=== PATIENT | female | born 1955 | race Caucasian/White ===

== ENCOUNTER 2019-07-10 07:53 | Day surgery (SDC) | payer OTHER ==
[~2019-07-10] VITALS: Ht 167.6 cm; Wt 115.0 kg
[~2019-07-10 07:53] MED LIST: ALBU90OI6 INH; ALPR.5 PO; AMLO5; ATOR10 PO; Aspirin EC81 MG; BUPR150T2; DULO60 PO; ESCI10; GABA400 PO; GAVILAX17 GM PO; GLIP10ER PO; HYDCHL12.5 PO; HYDR1TAB94 PO; INSULANPEN; LOSA50 PO; MELA3 PO; METF500 PO; METO25ER PO; OLME20 PO; OXYC10ER PO; PROM25 PO; Zantac150 MG PO; [UNRECOGNIZED DRUG - OTHER]
--- NOTE | 2019-07-10 09:05 | NUR ---
Pt received from Nena NAVARRO, [facility], Pt sitting upright in recliner in good spirits. Pt states she is pre- cath and post sob pt has not used her inhaler today. Lungs clear with diminsished posterior sounds. Instructed pt to use her inhaler. Right radial site wnl. Iv in right arm patent iv infusing at 100/hr NS. Call light given, spouse at bedside. Pt drinking hot coffee. Pt other then tightness in chest denies pain pt described the above prior to cath procedure.
--- NOTE | 2019-07-10 12:30 | NUR ---
DISCHARGE PT REMAINED A&OX3 AND DENIED ANY PAIN DURING RECOVERY. IV DC'D WITH CANULA IN TACT. TR BAND REMOVED-CLOTH DOT AND WHITE BOARD IN PLACE-CDI NO HEMATOMA NOTED. DISCHARGE PAPERWORK GONE OVER WITH PT AND SPOUSE. PT AND SPOUSE VERBALLY STATED THE UNDERSTANDING OF THE DISCHARGE EDUCATION AND DENIED ANY QUESTIONS AT THIS TIME. THIS NURSE HELP PT DRESS. PT WHEELED OUT BY ERIKA Bauer
== END 2019-07-10 12:30 | disposition home or self-care (01) ==
LOC: MHTC 07:53
DX: R07.9 Chest pain, unspecified (principal); R06.00 Dyspnea, unspecified; I12.9 Hypertensive chronic kidney disease with stage 1 through stage 4 chronic kidney disease, or unspecified chronic kidney disease; E11.22 Type 2 diabetes mellitus with diabetic chronic kidney disease; N18.9 Chronic kidney disease, unspecified; E78.5 Hyperlipidemia, unspecified; J44.9 Chronic obstructive pulmonary disease, unspecified; G43.909 Migraine, unspecified, not intractable, without status migrainosus; K21.9 Gastro-esophageal reflux disease without esophagitis; F41.9 Anxiety disorder, unspecified; F32.9 Major depressive disorder, single episode, unspecified; G47.33 Obstructive sleep apnea (adult) (pediatric); E66.9 Obesity, unspecified; Z88.0 Allergy status to penicillin; Z88.6 Allergy status to analgesic agent; Z91.040 Latex allergy status; Z79.899 Other long term (current) drug therapy; Z79.82 Long term (current) use of aspirin; Z79.4 Long term (current) use of insulin; Z79.51 Long term (current) use of inhaled steroids; Z68.41 Body mass index [BMI] 40.0-44.9, adult
CPT/HCPCS: 93454; 99152; C1769; C1894; J1644; J2250; J3010; J7030; Q9967

== ENCOUNTER → 2019-07-16 | Outpatient (CLI) | payer OTHER ==
[2019-07-20 12:07] LABS: M-SPIKE, % Not Observed % (Not Observed); PROTEIN,TOTAL,URINE 5.2 mg/dL (Not Estab.)
== END | disposition home or self-care (01) ==
LOC: LAB 10:37 → LAB SHORT 10:37 → LAB FUT 07-13 15:40
PROVIDERS: Internal Medicine
DX: Z00.01 Encounter for general adult medical examination with abnormal findings (principal)
CPT/HCPCS: 81050; 84166; 86335

== ENCOUNTER 2019-08-18 08:24 | Day surgery (SDC) | payer OTHER | END 2019-08-18 22:40 | disposition home or self-care (01) | LOC: MOI RAD 08:24 → MOI MRI 10:00 → MOI RAD 22:40 | DX: M94.251 Chondromalacia, right hip (principal); M24.851 Other specific joint derangements of right hip, not elsewhere classified | CPT/HCPCS: 20610; 73722; 77002; A9577; Q9967 ==

== ENCOUNTER 2021-01-03 16:43 | Emergency (ER) | payer OTHER, SELFPAY ==
[~2021-01-03] VITALS: Ht 170.2 cm; Wt 108.9 kg
[~2021-01-03 16:43] MED LIST changes: +BASAGLAR K100 UNIT/1 SC; +CALCIUM 600 +1 EA11 PO; +Doxycycline Mo100 M1 PO; -INSULANPEN; +VITAMIN D3125 MC3 PO; +ZYRTEC10 M2 PO; +[UNRECOGNIZED DRUG - CODE] PO
[2021-01-03 17:37] LABS: BASOPHILS ABSOLUTE AUTO 0.07 K/mm3 (0.00-0.23); BASOPHILS PERCENT AUTO 1 % (0-2); EOSINOPHILS ABSOLUTE AUTO 0.25 K/mm3 (0.00-0.68); EOSINOPHILS PERCENT AUTO 3 % (0-6); Hematocrit 36.7 % (33.0-51.0); Hemoglobin 11.5 g/dL (11.5-16.0); IMMATURE GRAN ABSOLUTE AUTO 0.04 K/mm3 (0.00-0.10); IMMATURE GRAN PERCENT AUTO 1 % (0-1); LYMPHOCYTES ABSOLUTE AUTO 1.38 K/mm3 (0.84-5.20); LYMPHOCYTES PERCENT AUTO 16 % (21-46); MONOCYTES ABSOLUTE AUTO 0.66 K/mm3 (0.16-1.47); MONOCYTES PERCENT AUTO 8 % (4-13); Mean Corpuscular HGB 26.9 pg (26.0-34.0); Mean Corpuscular HGB Conc 31.3 g/dL (31.5-36.5); Mean Corpuscular Volume 86 fL (80-100); Mean Platelet Volume 10.1 fL (9.1-12.4); NEUTROPHILS ABSOLUTE AUTO 6.37 K/mm3 (1.96-9.15); NEUTROPHILS PERCENT AUTO 73 % (41-73); Platelet Count 319 K/mm3 (150-400); RDW Coefficient Variation 14.4 % (11.7-14.2); Red Blood Cell Count 4.27 M/mm3 (3.80-5.20); White Blood Cell Count 8.77 K/mm3 (4.00-11.30)
[2021-01-03 17:58] LABS: Alanine Aminotransfer (ALT/SGP 26 U/L (12-78); Albumin, Blood 3.3 g/dL (3.4-5.0); Albumin/Globulin Ratio 0.9 (0.8-1.8); Alk Phos 106 U/L (50-136); Anion Gap 6 mmol/L (6-16); Aspartate Aminotrans (AST/SGOT 12 U/L (12-37); Bilirubin, Total 0.3 mg/dL (0.1-1.0); Blood Urea Nitrogen 12 mg/dL (8-24); Bun/Creatinine Ratio 15.9 (12.0-20.0); CO2, Blood 26 mmol/L (21-32); Calcium, Blood 10.2 mg/dL (8.5-10.1); Chloride, Blood 107 mmol/L (98-108); Creatinine, Blood 0.76 mg/dL (0.40-1.00); Globulin, Blood 3.6 g/dL (2.2-4.0); Glomerular Filtration Rate >60 (60-); Glucose, Blood 183 mg/dL (70-99); Potassium, Blood 3.9 mmol/L (3.5-5.5); Sodium, Blood 139 mmol/L (136-145); Total Protein, Blood 6.9 g/dL (6.4-8.2); Troponin I <0.015 ng/mL (0.000-0.040)
== END 2021-01-03 22:48 | disposition home or self-care (01) ==
LOC: ER 16:43
PROVIDERS: Physician Assistant
DX: R51.9 Headache, unspecified (principal); I10 Essential (primary) hypertension; Z88.0 Allergy status to penicillin; Z88.6 Allergy status to analgesic agent; Z91.040 Latex allergy status; Z79.82 Long term (current) use of aspirin; Z79.899 Other long term (current) drug therapy
CPT/HCPCS: 36415; 70450; 80053; 84484; 85025; 93005; 93010; 96374; 96375; 99284-25; A9270; J1790; J1885

== ENCOUNTER → 2021-02-03 | Outpatient (CLI) | payer OTHER, SELFPAY | END | disposition home or self-care (01) | LOC: LAB SHORT 17:36 → LAB 17:36 | DX: L08.9 Local infection of the skin and subcutaneous tissue, unspecified (principal) | CPT/HCPCS: 87070; 87205 ==

== ENCOUNTER → 2021-11-22 | Outpatient (CLI) | payer OTHER ==
[2021-11-22 14:14] LABS: Calcium, Urine <5.0 mg/dL (< 17.5); Calcium, Urine Calculation Unable to Calculate mg/24hrs (42.0-353.0)
== END ==
LOC: LAB SHORT 09:45 → LAB 09:45
PROVIDERS: Otolaryngology
DX: E21.3 Hyperparathyroidism, unspecified (principal)
CPT/HCPCS: 81050; 82340

== ENCOUNTER → 2022-01-03 | Outpatient (CLI) | payer OTHER ==
[2022-01-03 19:52] LABS: Creatinine Urine 31.3 mg/dL (27.00-270.00)
[2022-01-03 19:58] LABS: Calcium, Urine <5.0 mg/dL (< 17.5); Calcium, Urine Calculation Unable to Calculate mg/24hrs (42.0-353.0)
== END | disposition home or self-care (01) ==
LOC: LAB SHORT 13:18
PROVIDERS: Internal Medicine Endocrinology, Diabetes & Metabolism
DX: E83.52 Hypercalcemia (principal)
CPT/HCPCS: 81050; 82340; 82570

== ENCOUNTER 2022-08-28 11:07 | Emergency (ER) | payer OTHER ==
[~2022-08-28] VITALS: Ht 170.2 cm; Wt 106.6 kg
[2022-08-28 12:05] LABS: BASOPHILS ABSOLUTE AUTO 0.06 K/mm3 (0.00-0.23); BASOPHILS PERCENT AUTO 1 % (0-2); EOSINOPHILS ABSOLUTE AUTO 0.05 K/mm3 (0.00-0.68); EOSINOPHILS PERCENT AUTO 1 % (0-6); Hematocrit 38.6 % (33.0-51.0); Hemoglobin 12.7 g/dL (11.5-16.0); IMMATURE GRAN ABSOLUTE AUTO 0.06 K/mm3 (0.00-0.10); IMMATURE GRAN PERCENT AUTO 1 % (0-1); LYMPHOCYTES ABSOLUTE AUTO 0.96 K/mm3 (0.84-5.20); LYMPHOCYTES PERCENT AUTO 10 % (21-46); MONOCYTES ABSOLUTE AUTO 1.71 K/mm3 (0.16-1.47); MONOCYTES PERCENT AUTO 18 % (4-13); Mean Corpuscular HGB 28.6 pg (26.0-34.0); Mean Corpuscular HGB Conc 32.9 g/dL (31.5-36.5); Mean Corpuscular Volume 87 fL (80-100); Mean Platelet Volume 10.3 fL (9.1-12.4); NEUTROPHILS PERCENT AUTO 70 % (41-73); Platelet Count 265 K/mm3 (150-400); RDW Coefficient Variation 15.1 % (11.7-14.2); RDW Standard Deviation 48.3 fL (35.1-46.3); Red Blood Cell Count 4.44 M/mm3 (3.80-5.20); White Blood Cell Count 9.54 K/mm3 (4.00-11.30)
[2022-08-28 12:18] LABS: Influenza A, PCR NEGATIVE (NEGATIVE); Influenza B, PCR NEGATIVE (NEGATIVE); Resp Syncytial Virus, PCR NEGATIVE (NEGATIVE)
[2022-08-28 12:25] LABS: Albumin, Blood 3.5 g/dL (3.4-5.0); Albumin/Globulin Ratio 0.9 (0.8-1.8); Bilirubin, Total 0.4 mg/dL (0.1-1.0); Bun/Creatinine Ratio 13.8 (12.0-20.0); Calcium, Blood 8.9 mg/dL (8.5-10.1); Creatinine, Blood 0.87 mg/dL (0.40-1.00); Globulin, Blood 3.9 g/dL (2.2-4.0); Potassium, Blood 3.7 mmol/L (3.5-5.5); Total Protein, Blood 7.4 g/dL (6.4-8.2)
[2022-08-28 12:36] LABS: SARS-Cov-2 (COVID-19) PCR, MMC POSITIVE (NEGATIVE)
[2022-08-28] MEDS ORDERED: ONDA4ODT MM (15:36)
== END 2022-08-28 15:47 | disposition home or self-care (01) ==
LOC: ER 11:07
PROVIDERS: Physician Assistant
DX: U07.1 COVID-19 (principal); I10 Essential (primary) hypertension; Z88.0 Allergy status to penicillin; Z88.8 Allergy status to other drugs, medicaments and biological substances; Z91.040 Latex allergy status; Z79.899 Other long term (current) drug therapy; Z79.82 Long term (current) use of aspirin; Z79.4 Long term (current) use of insulin
CPT/HCPCS: 0241U; 36415; 71045; 80053; 84484; 85025; 93005; 93010

== ENCOUNTER 2025-05-12 09:25 | Observation (INO) | payer OTHER ==
[~2025-05-12] VITALS: Ht 170.2 cm; Wt 92.4 kg
[~2025-05-12 09:25] MED LIST changes: -Aspirin EC81 MG; +Aspirin EC81 MG PO; -BASAGLAR K100 UNIT/1 SC; +INSULANPEN SC; +ONDA4ODT MM
[2025-05-12 10:20] LABS: BASOPHILS ABSOLUTE AUTO 0.10 K/mm3 (0.00-0.23); BASOPHILS PERCENT AUTO 1 % (0-2); EOSINOPHILS ABSOLUTE AUTO 0.30 K/mm3 (0.00-0.68); EOSINOPHILS PERCENT AUTO 2 % (0-6); Hematocrit 34.3 % (33.0-51.0); Hemoglobin 11.2 g/dL (11.5-16.0); IMMATURE GRAN ABSOLUTE AUTO 0.05 K/mm3 (0.00-0.10); IMMATURE GRAN PERCENT AUTO 0 % (0-1); LYMPHOCYTES ABSOLUTE AUTO 3.48 K/mm3 (0.84-5.20); LYMPHOCYTES PERCENT AUTO 27 % (21-46); MONOCYTES ABSOLUTE AUTO 1.28 K/mm3 (0.16-1.47); MONOCYTES PERCENT AUTO 10 % (4-13); Mean Corpuscular HGB Conc 32.7 g/dL (31.5-36.5); Mean Corpuscular Volume 90 fL (80-100); NEUTROPHILS ABSOLUTE AUTO 7.85 K/mm3 (1.96-9.15); NEUTROPHILS PERCENT AUTO 60 % (41-73); NRBC ABSOLUTE 0.00 K/mm3 (0.00-0.02); NRBC Auto 0.0 /100 WBC (0.0-0.2); Platelet Count 321 K/mm3 (150-400); RDW Coefficient Variation 14.6 % (11.7-14.2); RDW Standard Deviation 47.8 fL (35.1-46.3)
[2025-05-12 10:36] LABS: Alanine Aminotransfer (ALT/SGP 21.0 U/L (12-78); Albumin, Blood 3.1 g/dL (3.4-5.0); Albumin/Globulin Ratio 0.8 (0.8-1.8); Anion Gap 10.0 mmol/L (3-11); Aspartate Aminotrans (AST/SGOT 16.0 U/L (12-37); Bilirubin, Total 0.3 mg/dL (0.1-1.0); Blood Urea Nitrogen 30.0 mg/dL (8-24); CO2, Blood 24.0 mmol/L (21-32); Calcium, Blood 8.5 mg/dL (8.5-10.1); Chloride, Blood 106.0 mmol/L (98-108); Creatinine, Blood 1.64 mg/dL (0.40-1.00); Globulin, Blood 3.8 g/dL (2.2-4.0); Glucose, Blood 87.0 mg/dL (70-99); Potassium, Blood 3.8 mmol/L (3.5-5.5); Sodium, Blood 136.0 mmol/L (136-145); Total Protein, Blood 6.9 g/dL (6.4-8.2)
[2025-05-12] MEDS ORDERED: NS 1,000 ML IV SCH (11:30)
[2025-05-12] MEDS ORDERED: Albuterol HFA200 ACT/6.7 GM INH INH PRN (14:10)
[2025-05-12] MEDS ORDERED: Insulin Regular 100 UNIT/ML 10ML Vial SC SCH ×2 (16:30)
[2025-05-12] MEDS ORDERED: TRULICITY3 MG/0.5 M SC (19:48)
[2025-05-12] MEDS ORDERED: TRESIBA FL100 UNIT/2 SC (19:51)
[2025-05-12] MEDS ORDERED: FURO20 PO (19:52)
[2025-05-12] MEDS ORDERED: NEBI10 PO (19:53)
[2025-05-12] MEDS ORDERED: Insulin Glargine-Yfgn 100 Unit/mL 3 ML SYR SC SCH ×2 (21:00)
[2025-05-12 21:31] VITALS: BP 138/77
[2025-05-12 23:58] VITALS: BP 136/73
[2025-05-13] VITALS (9 sets, daily range): BP systolic 124–171; BP diastolic 73–108
[2025-05-13 04:55] LABS: Source, Urine Clean Catch
[2025-05-13 05:00] LABS: Bilirubin, Urine Neg (Neg); Glucose Qualitative, Urine Neg (Neg); Ketones, Urine Neg (Neg); Leukocyte Esterase, Urine Neg (Neg); Protein, Urine Neg (Neg); Specific Gravity, Urine 1.015 (1.003-1.022); Urobilinogen, Urine NORM (Normal)
[2025-05-13 05:05] LABS: BASOPHILS ABSOLUTE AUTO 0.07 K/mm3 (0.00-0.23); BASOPHILS PERCENT AUTO 1 % (0-2); EOSINOPHILS ABSOLUTE AUTO 0.29 K/mm3 (0.00-0.68); EOSINOPHILS PERCENT AUTO 3 % (0-6); Hematocrit 32.3 % (33.0-51.0); Hemoglobin 10.4 g/dL (11.5-16.0); IMMATURE GRAN ABSOLUTE AUTO 0.02 K/mm3 (0.00-0.10); IMMATURE GRAN PERCENT AUTO 0 % (0-1); LYMPHOCYTES ABSOLUTE AUTO 2.94 K/mm3 (0.84-5.20); LYMPHOCYTES PERCENT AUTO 30 % (21-46); MONOCYTES ABSOLUTE AUTO 0.88 K/mm3 (0.16-1.47); MONOCYTES PERCENT AUTO 9 % (4-13); Mean Corpuscular HGB Conc 32.2 g/dL (31.5-36.5); Mean Corpuscular Volume 91 fL (80-100); NEUTROPHILS ABSOLUTE AUTO 5.55 K/mm3 (1.96-9.15); NEUTROPHILS PERCENT AUTO 57 % (41-73); NRBC ABSOLUTE 0.00 K/mm3 (0.00-0.02); NRBC Auto 0.0 /100 WBC (0.0-0.2); Platelet Count 248 K/mm3 (150-400); RDW Coefficient Variation 14.6 % (11.7-14.2); RDW Standard Deviation 49.1 fL (35.1-46.3)
[2025-05-13 05:08] LABS: Color, Urine Pale Yellow (P-Yellow)
[2025-05-13 05:51] LABS: Alanine Aminotransfer (ALT/SGP 18.0 U/L (12-78); Albumin, Blood 2.6 g/dL (3.4-5.0); Albumin/Globulin Ratio 0.8 (0.8-1.8); Anion Gap 9.0 mmol/L (3-11); Aspartate Aminotrans (AST/SGOT 14.0 U/L (12-37); Bilirubin, Total 0.4 mg/dL (0.1-1.0); Blood Urea Nitrogen 26.0 mg/dL (8-24); CO2, Blood 24.0 mmol/L (21-32); Calcium, Blood 8.4 mg/dL (8.5-10.1); Chloride, Blood 112.0 mmol/L (98-108); Creatinine, Blood 1.23 mg/dL (0.40-1.00); Globulin, Blood 3.3 g/dL (2.2-4.0); Glucose, Blood 95.0 mg/dL (70-99); Potassium, Blood 3.8 mmol/L (3.5-5.5); Sodium, Blood 141.0 mmol/L (136-145); Total Protein, Blood 5.9 g/dL (6.4-8.2)
--- NOTE | 2025-05-13 06:02 | NUR ---
SHIFT SUMMARY PT ADMITTED TO ROOM 361 AT 2130 FROM ED FOR SYNCOPE. PT DIZZY WHEN UP AND UNSTEADY ON HER FEET. OOB TO BSC WITH FWW AND 1 ASSIST. TELE MONITOR WITHOUT ECTOPY. PT HAS CONTINUOUS GLUCOSE MONITOR AND PER THIS HER BLOOD SUGAR WAS 100 AFTER EATING A SNACK- LANTUS INSULIN HELD. THIS AM, PER HER GLUCOSE MONITOR, HER BS WAS 95- JUICE AND PUDDING PROVIDED. IVF X1 LITER FINISHED INFUSING PER ORDER, NOW PT IS SL'D. PT C/O SOME BACK AND LEFT HIP PAIN FROM FALL AT HOME, BUT DENIES THE NEED FOR PAIN MEDICATION. PT SLEPT INTERMITTENTLY DURING THE NIGHT.
--- NOTE | 2025-05-13 07:41 | NUR ---
ASSUMPTION OF CARE: THIS RN ASSUMED CARE OF PATIENT. ASLEEP DURING SHIFT CHANGE AND WOKE FOR INTRODUCTIONS. LYING SUPINE IN BED. BREATHING EVEN AND UNLABORED c ROOM AIR. MOST RECENT TELE STRIP IN CHART REVIEWED AND INTERPRETED SINUS c 1ST-DEGREE AV BLOCK AND BUNDLE BRANCH BLOCK @ 63bpm. BED IN LOWEST POSITION. CALL LIGHT WITHIN REACH. ACUTE NEEDS MET.
[2025-05-13] MEDS ORDERED: DULoxetine HCL 60 MG Capsule DR PO SCH (09:00)
[2025-05-13] MEDS ORDERED: Enoxaparin 40 MG/0.4 ML SYR SC SCH (09:00)
--- NOTE | 2025-05-13 09:59 | NUR ---
Spiritual Care | Pt. Request Pt. is awake in bed and welcomes my visit. Pt. is pleasant. Some memberso f the Pts. family are known to this hr coordinator from the community. Pt. verbalized concern about the unknowns of her diagnosis, but did verbalize that she had been experienceing stress, and "migrains" caring for her elderly mother. Prayed with the Pt. Pt. verbalized gratitue for the spiritual care visit. This hr coordinator brought a correction to the admitting desk as the Pts. sister "Leena" was listed in the demographics as her mother.
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
--- NOTE | 2025-05-13 19:32 | NUR ---
END OF SHIFT SUMMARY: A&Ox4. PLEASANT AND COOPERATIVE WITH CARE. CALLS APPROPRIATELY AND IS ABLE TO ADVOCATE NEEDS EFFECTIVELY. CONTINENT OF BOWEL AND BLADDER; LBM TODAY. AMBULATES c CANE @ BASELINE. 1PA c FWW D/T VERTIGO. MEDS WHOLE c FLUIDS. NO C/O PAIN. TELE SINUS c FHB & BBB @ 63bpm. WORKED c PT TODAY WHO WAS CONCERNED R/T VERTIGO AND ATAXIA. PLAN FOR DC TOMORROW c ZIO PATCH. BED IN LOWEST POSITION, CALL LIGHT WITHIN REACH, ALL NEEDS MET. REPORT TO ONCOMING NURSE.
[2025-05-14 03:22] VITALS: BP 163/76
--- NOTE | 2025-05-14 05:56 | NUR ---
SHIFT SUMMARY PT SLEPT INTERMITTENTLY DURING THE NIGHT. OOB TO BR WITH FWW/GB AND 1 ASSIST. PT REMAINS VERY UNSTEADY ON HER FEET. CONTINUES TO C/O DIZZINESS WHEN UP. MEDICATED X1 FOR PAIN WITH TYLENOL PER EMAR. NO CHANGES IN TELE RHYTHM- RUNNING SR/SB.
[2025-05-14 07:35] VITALS: BP 141/78
--- NOTE | 2025-05-14 07:57 | NUR ---
ASSUMPTION OF CARE: THIS RN ASSUMED CARE OF PATIENT FOR SECOND DAY. AWAKE DURING SHIFT CHANGE REPORT. LYING IN BED c HOB ELEVATED. BREATHING EVEN AND UNLABORED c ROOM AIR. MOST RECENT TELE STRIP IN CHART INTERPRETED SINUS DARRICK c BBB @ 58bpm. BED IN LOWEST POSITION. CALL LIGHT WITHIN REACH. ACUTE NEEDS MET.
--- NOTE | 2025-05-14 08:13 | NUR ---
PATIENT USING CONTINUOUS GLUCOSE MONITOR. BLOOD SUGAR CHECKS FOR 05/13/25: 0730: 134 1130: 148 1630: 124
[2025-05-14 09:54] LABS: Anion Gap 8.0 mmol/L (3-11); Blood Urea Nitrogen 17.0 mg/dL (8-24); CO2, Blood 26.0 mmol/L (21-32); Calcium, Blood 8.8 mg/dL (8.5-10.1); Chloride, Blood 111.0 mmol/L (98-108); Creatinine, Blood 1.0 mg/dL (0.40-1.00); Glucose, Blood 121.0 mg/dL (70-99); Potassium, Blood 3.8 mmol/L (3.5-5.5); Sodium, Blood 141.0 mmol/L (136-145)
--- NOTE | 2025-05-14 11:13 | NUR ---
PT c C/O NAUSEA. V.O. FROM DR. PRYOR FOR ZOFRAN 4MG PO Q6H PRN. ORDER READ BACK.
[2025-05-14 11:50] VITALS: BP 159/89
--- NOTE | 2025-05-14 11:51 | NUR ---
Pt. is awake in bed and welcomes my visit. An extended life story is facilitated as well as matters of edil and belief. Pt. displays evidence of a strong edil. Our conversation turned to a time of bereavement counselling, as matters of the recent of the Pts. spouse are considered. Pt. displayed evidence of being heard and was in agreement with pastoral phone counselor. Prayed with the Pt. Pt. verbalized gratitude for the spiritual care visit.
[2025-05-14 15:31] VITALS: BP 154/75
--- NOTE | 2025-05-14 18:47 | NUR ---
END OF SHIFT SUMMARY: A&Ox4. PLEASANT AND COOPERATIVE WITH CARE. CALLS APPROPRIATELY AND IS ABLE TO ADVOCATE NEEDS EFFECTIVELY. CONTINENT OF BOWEL AND BLADDER; LBM 05/13/25. AMBULATES c 1PA & FWW SECONDARY TO VERTIGO. MEDS WHOLE c FLUIDS. NO C/O PAIN OR DISCOMFORT. AGREED TO SNF AND CHOICED [facility]; PENDING ACCEPTANCE. SISTER,ESE SULTANA, IS PRIMARY CONTACT ([phone]) WILL BE OUT OF TOWN THIS WEEKEND. PLEASE CONTACT [id number], BATSHEVA KAUREDORN ([phone]) WHEN PATIENT GETTING READY TO TRANSFER TO SNF OR FOR ANY NEEDS. BED IN LOWEST POSITION, CALL LIGHT WITHIN REACH, ALL NEEDS MET. REPORT TO ONCOMING NURSE.
[2025-05-14 20:28] VITALS: BP 172/87
[2025-05-14 23:49] VITALS: BP 180/83
[2025-05-15] VITALS (7 sets, daily range): BP systolic 144–170; BP diastolic 70–85
[2025-05-15] MEDS ORDERED: HydrALAZINE HCl 20 MG / ML 1ML Vial IV PRN (00:40)
[2025-05-15 04:57] LABS: BASOPHILS ABSOLUTE AUTO 0.08 K/mm3 (0.00-0.23); BASOPHILS PERCENT AUTO 1 % (0-2); EOSINOPHILS ABSOLUTE AUTO 0.25 K/mm3 (0.00-0.68); EOSINOPHILS PERCENT AUTO 3 % (0-6); Hematocrit 35.6 % (33.0-51.0); Hemoglobin 11.5 g/dL (11.5-16.0); IMMATURE GRAN ABSOLUTE AUTO 0.03 K/mm3 (0.00-0.10); IMMATURE GRAN PERCENT AUTO 0 % (0-1); LYMPHOCYTES ABSOLUTE AUTO 2.58 K/mm3 (0.84-5.20); LYMPHOCYTES PERCENT AUTO 28 % (21-46); MONOCYTES ABSOLUTE AUTO 0.87 K/mm3 (0.16-1.47); MONOCYTES PERCENT AUTO 9 % (4-13); Mean Corpuscular HGB Conc 32.3 g/dL (31.5-36.5); Mean Corpuscular Volume 91 fL (80-100); NEUTROPHILS ABSOLUTE AUTO 5.56 K/mm3 (1.96-9.15); NEUTROPHILS PERCENT AUTO 59 % (41-73); NRBC ABSOLUTE 0.00 K/mm3 (0.00-0.02); NRBC Auto 0.0 /100 WBC (0.0-0.2); Platelet Count 242 K/mm3 (150-400); RDW Coefficient Variation 14.6 % (11.7-14.2); RDW Standard Deviation 48.2 fL (35.1-46.3)
[2025-05-15 05:13] LABS: Anion Gap 8.0 mmol/L (3-11); Blood Urea Nitrogen 16.0 mg/dL (8-24); CO2, Blood 25.0 mmol/L (21-32); Calcium, Blood 8.7 mg/dL (8.5-10.1); Chloride, Blood 111.0 mmol/L (98-108); Creatinine, Blood 1.03 mg/dL (0.40-1.00); Glucose, Blood 113.0 mg/dL (70-99); Potassium, Blood 3.9 mmol/L (3.5-5.5); Sodium, Blood 140.0 mmol/L (136-145)
--- NOTE | 2025-05-15 05:56 | NUR ---
Shift Summary Pt hypertensive with systolic of 180 during midnight vitals. I called the hospitalist who ordered PRN Hydralazine. Administered Hydralazine and then pt had a large void of 900 mL in the next hour. BP was improved with systolic in the 140's. Pt is one assist w/ FWW and GB, she is a little unsteady when up. She did c/o headache, medicated X1 w/ Tylenol and pt reported resolution of headache. Pt is AOx4, calls appropriatly.
[2025-05-15] MEDS ORDERED: Fluticasone 0.05% Nasal Spray PRN (11:15)
[2025-05-15] MEDS ORDERED: FREESTYLE LIBR1 EA10 MC (11:58)
[2025-05-15] MEDS ORDERED: NIZORAL A-D125 ML (11:59)
[2025-05-15] MEDS ORDERED: Doxycycline Mo100 M1 PO (12:00)
[2025-05-15] MEDS ORDERED: Calcium Carbon500 MG PO (12:01)
[2025-05-15] MEDS ORDERED: VITAMIN D5000 UNIT PO (12:02)
[2025-05-15] MEDS ORDERED: [UNRECOGNIZED DRUG - OTHER] TOP (12:03)
[2025-05-15] MEDS ORDERED: Colace100 MG PO (12:04)
[2025-05-15] MEDS ORDERED: PROM25 PO (12:05)
[2025-05-15] MEDS ORDERED: EYE ALLERGY ITCH5 ML BOTHEYES (12:06)
[2025-05-15] MEDS ORDERED: Diprolene 0.05%15 GM TOP (12:07)
[2025-05-15] MEDS ORDERED: KETO15TC TOP (12:07)
[2025-05-15] MEDS ORDERED: ACET500 PO (12:08)
--- NOTE | 2025-05-15 12:33 | NUR ---
RN NOTIFIED PROVIDER THAT MED REC COMPLETED.
--- NOTE | 2025-05-15 16:37 | NUR ---
SHIFT SUMMARY NO ACUTE CHANGES, A/Ox4, ABLE TO MAKE NEEDS KNOWN. UNSTEADY GAIT - PT REQUIRES NURSE ASSIST WITH GAIT BELT AND FWW. PT DENIES PAIN. PT DID HAVE REACTION TO HOSPITAL PROVIDED MOISTURIZER - IMPROVED ONCE WASHED OFF. REQUIRED PRN HYDRALAZINE ONE TIME. HOME MEDICATIONS RESTARTED. LIKELY DISCHARGE TO SNF ON 05/17/25 PENDING INSURANCE. PT CURRENTLY RESTING IN BED WATCHING TV - BED IN LOWEST POSITION AND CALL LIGHT WITHIN REACH.
[2025-05-15] MEDS ORDERED: Insulin Glargine-Yfgn 100 Unit/mL 3 ML SYR SC SCH (21:00)
--- NOTE | 2025-05-15 23:17 | NUR ---
PT AWAKE DURING SHIFT REPORT, WATCHING TV. UP WITH 1P ASSIST USING FWW/GB DUE TO VERTIGO. A&O, ABLE TO MAKE NEEDS KNOWN. PER REPORT, PT TO D/C TO SNF ON SATURDAY. SOME HTN, MEDS GIVEN PER EMAR AT HS; SEE CHART. PT LATER C/O BILLINGSLEY, REQUESTING TYLENOL; GIVEN PER EMAR. PT ALSO REPORTED HOME MED GABAPENTIN DOSE IS 800 MG BID FOR RLS; CURRENTLY PT RECEIVING 400 MG BID HERE. SCD'S IN PLACE; PT REPORTING THEM HELPFUL. DENIED N/T TO LE'S WITH SCD'S IN PLACE. PT REPORTED NO BM SINCE 05/14; PT REPORTS USUALLY HAVING LOOSE STOOLS AT HOME. PT MAY REQUEST COLACE TOMORROW. NEW ORDER FOR GLARGINE TO START TONIGHT, HOWEVER PT'S CBG BETWEEN 87 AND 110 WITH EATING ALL OF DINNER. GLARGINE HELD, PER PT REQUEST AND NURSING JUDGEMENT UNTIL DISCUSSED WITH HOSPITALIST. PT RESTING QUIETLY AT THIS TIME. CALL LT IN REACH.
[2025-05-16] VITALS (7 sets, daily range): BP systolic 139–171; BP diastolic 63–83
--- NOTE | 2025-05-16 04:25 | NUR ---
SHIFT SUMMARY: PT IS AOX4 AND COOPERATIVE WITH CARE. AROUND 0415 IN THE MORNING THE PT C/O CHEST TIGHTNESS AND SWELLING IN FACE AND EXTREMITIES. VS TAKEN AND EXTREMITIES ELEVATED. PT MEDICATED WITH XANAX ADVISED BY CHARGE NURSE. PT IS VOIDING THROUGH OUT SHIFT. PLAN FOR PT IS TO DC ON 05/17 TO SNF.
--- NOTE | 2025-05-16 16:01 | NUR ---
SHIFT SUMMARY NO ACUTE CHANGES, A/Ox4, ABLE TO MAKE NEEDS KNOWN AND USES CALL LIGHT APPROPRIATELY. PT DENIES PAIN OR DISTRESS. REPORTS FEELING BETTER TODAY. PT REMAINS UNSTEADY ON FEET. PLAN TO DISCHARGE TO SNF ON SATURDAY FOR REHAB/PHYSICAL THERAPY. PT CHANGED HER OWN GLUCOSE MONITOR TODAY. BLOOD SUGARS REMAIN WNL AND REQUIRING NO COVERAGE SO FAR THIS SHIFT. NO BM - PRN COLACE ORDERED, PT PASSING GAS AND DRANK 2 PRUNE JUICES. PT CURRENTLY RESTING IN CHAIR WITH CALL LIGHT WITHIN REACH.
--- NOTE | 2025-05-16 17:55 | NUR ---
AFTERNOON VITALS COMPLETED AND PT BP 171/79. RN COMPLETED MANUAL BP AND BP 164/82. PER ORDERS PRN HYDRALAZINE TO BE ADMINISTERED FOR SBP ABOVE 170. IV NOT PATENT AND REMOVED. HEAT PACK PLACED ON PT TO PLACE NEW IV NO GOOD VIENS FOUND ON INITAL LOOK.
--- NOTE | 2025-05-16 19:41 | NUR ---
ASSUMPTION OF CARE: THIS RN ASSUMED CARE OF PATIENT. AWAKE DURING SHIFT CHANGE REPORT. LYING IN BED c HOB ELEVATED. BREATHING EVEN AND UNLABORED c ROOM AIR. MOST RECENT TELE STRIP IN CHART INTERPRETED SINUS @ 72bpm. REPORTED "FEELING HOT" AND GLUCOSE CHECKED c CGM YIELDED RESULTS OF 229. STATED SHE ATE SIGNIFICANTLY MORE CARBS c DINNER THAN SHE USUALLY DOES. WILL MONITOR AND NOTIFY PROVIDER IF INDICATED. BED IN LOWEST POSITION. CALL LIGHT WITHIN REACH. ACUTE NEEDS MET.
[2025-05-17 00:02] VITALS: BP 149/72
[2025-05-17 04:17] VITALS: BP 153/72
[2025-05-17 05:27] LABS: Anion Gap 7.0 mmol/L (3-11); Blood Urea Nitrogen 13.0 mg/dL (8-24); CO2, Blood 28.0 mmol/L (21-32); Calcium, Blood 8.4 mg/dL (8.5-10.1); Chloride, Blood 108.0 mmol/L (98-108); Creatinine, Blood 1.06 mg/dL (0.40-1.00); Glucose, Blood 111.0 mg/dL (70-99); Potassium, Blood 3.6 mmol/L (3.5-5.5); Sodium, Blood 139.0 mmol/L (136-145)
--- NOTE | 2025-05-17 05:35 | NUR ---
END OF SHIFT SUMMARY: A&Ox4. PLEASANT AND COOPERATIVE WITH CARE. CALLS APPROPRIATELY AND IS ABLE TO ADVOCATE NEEDS EFFECTIVELY. CONTINENT OF BOWEL AND BLADDER. UNSTEADY GAIT c ATAXIA; 1PA c FWW & GB. MEDS WHOLE c FLUIDS. NO C / O PAIN. NO CHANGES IN TELE AND CONTINUES TO RUN SINUS IN 70s. BLOOD SUGAR 229 AT SHIFT CHANGE AND 120 AT BEDTIME. GLARGLINE NOT GIVEN PER DR PRYOR LAST CHART NOTE STATING DCd. VSS. PLAN FOR DC TO SNF TOMORROW. BED IN LOWEST POSITION, CALL LIGHT WITHIN REACH, ALL NEEDS MET. REPORT TO ONCOMING NURSE.
[2025-05-17 07:33] VITALS: BP 162/91
[2025-05-17 15:10] VITALS: BP 138/91
--- NOTE | 2025-05-17 17:32 | NUR ---
SHIFT SUMMARY NO ACUTE CHANGES. A/Ox4, ABLE TO MAKE NEEDS KNOWN, USES CALL SYSTEM APPROPRIATELY. TREATED PER EMAR. GOOD APPETITE. NO IV ACCESS AND TELE DC'D. AWAITING SNF PLACEMENT. REMAINS ON RA, VITALS STABLE. PT CURRENTLY SLEEPING IN BED WITH BED IN LOWEST POSITION AND CALL LIGHT WITHIN REACH.
[2025-05-17 19:09] VITALS: BP 169/84
[2025-05-18 03:43] VITALS: BP 154/69
--- NOTE | 2025-05-18 05:53 | NUR ---
PATIENT VERY INSTABLE WITH WALKER, C/O CONSTIPATION WITH ONLY HAVING 2 SMALL BM'S YESTERDAY. PRUNE JUICE GIVEN. DENIES PAIN. PLAN TO D/C TO SNF
[2025-05-18 07:19] VITALS: BP 144/82
--- NOTE | 2025-05-18 07:36 | NUR ---
ASSUMPTION OF CARE: THIS RN ASSUMED CARE OF PATIENT. ASLEEP DURING SHIFT CHANGE REPORT. LYING IN BED c HOB ELEVATED. BREATHING EVEN AND UNLABORED c ROOM AIR. BED IN LOWEST POSITION. CALL LIGHT WITHIN REACH. ACUTE NEEDS MET.
--- NOTE | 2025-05-18 11:33 | NUR ---
Pt. is awake and sitting in a chair when she welcomes my visit. Pt. is pleasant with this grassland conservationist but does display evidence of being frustrated in the delays of getting transferred. Listened with emapthy and normalized the Pt. Experience. Pt. displayed evidence of trust and spritiual connection. Prayed with thee Pt. Pt. verbalized gratitude for the spiritual care visit. Pt. verbalized concern that there was something "she should be doing" with regard to her transfer. This grassland conservationist will pass the Pts. concern and question on to her healthcare recruiter.
--- NOTE | 2025-05-18 11:38 | NUR ---
DR PRYOR TO BEDSIDE FOR ROUNDING.
[2025-05-18 11:39] VITALS: BP 171/92
[2025-05-18 13:19] VITALS: BP 157/86
[2025-05-18 15:11] VITALS: BP 155/83
--- NOTE | 2025-05-18 18:00 | NUR ---
END OF SHIFT SUMMARY: A&Ox4. PLEASANT AND COOPERATIVE WITH CARE. CALLS APPROPRIATELY AND IS ABLE TO ADVOCATE NEEDS EFFECTIVELY. CONTINENT OF BOWEL AND BLADDER; LBM TODAY. AMBULATES 1PA c FWW & GB SECONDARY TO ATAXIA AND VERTIGO. MEDS WHOLE c FLUIDS. C / O HEADACHE FOR WHICH SHE RECEIVED APAP. FOUND TO BE HYPERTENSIVE DURING TIME OF BILLINGSLEY AND PRN HYDRALAZINE WAS ADMINISTERED c GOOD EFFECT; RECHECK SBP <160. ANTICIPATE DC TO SNF. BLOOD SUGAR AND SS INSULIN DCd. BED IN LOWEST POSITION, CALL LIGHT WITHIN REACH, ALL NEEDS MET. REPORT TO ONCOMING NURSE.
[2025-05-18 19:28] VITALS: BP 154/75
[2025-05-19 02:56] VITALS: BP 136/83
--- NOTE | 2025-05-19 06:30 | NUR ---
PATIENT SLEPT WELL. ONE PERSON WITH GAIT BELT AND WALKER TO WALK TO BATHROOM. DENIES PAIN. VERY SMALL BM.
[2025-05-19 07:35] VITALS: BP 152/84
--- NOTE | 2025-05-19 14:45 | NUR ---
P.t is awake and sitting in a chair. Pt. is unsettled about delays in her transfer to rehab. Pt. also verbalized that her blood pressure has risen and that has becomes a concern. Listened with empathy and a calming presence and sought to normalize the Pt. experience. Considered matters of edil and her past. listened with interest. Pt. displayed an uplifted countenance. Prayed with the Pt. Pt. verbalized gratitude for the spiritual care visit.
--- NOTE | 2025-05-19 16:43 | NUR ---
SHIFT SUMMARY PT AXO4, COOPERATIVE, ABLE TO MAKE NEEDS KNOWN. PT HAS BEEN CALLING TO USE THE BATHROOM APPROPRIATELY. DID HAVE ONE SITUATION OF URGENCY WHERE PT HAD TO TRANSFER TO TOILET IND, WHICH SHE RETURNED SAFELY. TOLERATING MEDICATIONS. AWAITING INSURANCE APPROVAL FOR SNF TRANSFER. BED IN LOWEST POSITION, CALL LIGHT WITHIN [facility].
[2025-05-19 16:49] VITALS: BP 188/90
[2025-05-19 19:13] VITALS: BP 169/78
[2025-05-20 04:20] VITALS: BP 169/82
--- NOTE | 2025-05-20 06:32 | NUR ---
PATIENT SLEPT WELL DENIES PAIN AND PENDING SNF PLACEMENT
[2025-05-20 08:10] LABS: Hematocrit 40.3 % (33.0-51.0); Hemoglobin 13.1 g/dL (11.5-16.0); Mean Corpuscular HGB Conc 32.5 g/dL (31.5-36.5); Mean Corpuscular Volume 91 fL (80-100); NRBC ABSOLUTE 0.00 K/mm3 (0.00-0.02); NRBC Auto 0.0 /100 WBC (0.0-0.2); Platelet Count 305 K/mm3 (150-400); RDW Coefficient Variation 14.6 % (11.7-14.2); RDW Standard Deviation 48.4 fL (35.1-46.3)
[2025-05-20 08:45] LABS: Anion Gap 10.0 mmol/L (3-11); Blood Urea Nitrogen 15.0 mg/dL (8-24); CO2, Blood 27.0 mmol/L (21-32); Calcium, Blood 9.2 mg/dL (8.5-10.1); Chloride, Blood 105.0 mmol/L (98-108); Creatinine, Blood 1.06 mg/dL (0.40-1.00); Glucose, Blood 132.0 mg/dL (70-99); Potassium, Blood 3.8 mmol/L (3.5-5.5); Sodium, Blood 138.0 mmol/L (136-145)
--- NOTE | 2025-05-20 10:07 | NUR ---
pt sitting up in chair, Dr. Garcia in to see her answered her questions, a/ox4, pleasant and cooperative with care, follows commands well, reports dizziness when up, lungs are clear t/o, resp even and unlabored, no cough noted, hrr, +1 edema noted to b/l le, ppp+1, cap refill<3 sec, vs stable b/p high, btx4, abd flat soft nontender, voids without diff, skin c/w/d, maew, unsteady on feet, uses a walker to ambulate but needs gait belt as well, pt reports from [facility], ruptured ear drum, harman, call light in reach.
[2025-05-20 17:22] VITALS: BP 150/80
--- NOTE | 2025-05-20 19:20 | NUR ---
pt up to chair most of the day, no acute changes this shift. call light in reach.
[2025-05-20 20:01] VITALS: BP 165/87
[2025-05-21 02:35] VITALS: BP 162/91
[2025-05-21 05:20] LABS: Albumin, Blood 3.0 g/dL (3.4-5.0); Anion Gap 8 mmol/L (3-11); Blood Urea Nitrogen 14 mg/dL (8-24); CO2, Blood 27 mmol/L (21-32); Calcium, Blood 8.4 mg/dL (8.5-10.1); Chloride, Blood 107 mmol/L (98-108); Creatinine, Blood 1.01 mg/dL (0.40-1.00); Glucose, Blood 128 mg/dL (70-99); Phosphorus, Blood 3.8 mg/dL (2.5-4.9); Potassium, Blood 3.4 mmol/L (3.5-5.5); Sodium, Blood 139 mmol/L (136-145)
--- NOTE | 2025-05-21 05:52 | NUR ---
SHIFT SUMMARY; PATIENT SLEPT IN SHORT INTERVALS, UP WTH FWW/GB/1A. HTN JUST UNDER DOSE PARAMETER. NO IV ACCESS
--- NOTE | 2025-05-21 07:06 | NUR ---
NURSES NOTE; PATIENT IS VERY UNSTABLE WHEN GETTING UP AND WALKING WITH FWW/GB AND 1 ASSIST TO BRP AND TO MOVING AROUND THE ROOM. SHE FALLS BACK AGAINIST ME AND WOBBLES FORWARD ALSO. SHE SHOULD NOT BE LEFT ALONE WHEN UP, SHE WILL FALL AGAIN.
[2025-05-21 07:36] VITALS: BP 150/78
--- NOTE | 2025-05-21 09:00 | NUR ---
Pt sitting up in chair, a/ox4, pleasant and coopertive with care, follows commands well, states shes feeling good, but still very unsteady on her feet, lungs are clear t/o, resp even and unlabored, no cough noted, on r/a, hrr, trace edema noted to b/l le, ppp+1, cap refill <3 sec, vs stable, afebrile, btx4, abd flat soft nontender, voids without diff, skin c/w/d, maew, ext are jerky when up. call light in reach.
[2025-05-21 16:45] VITALS: BP 207/106
[2025-05-21 17:30] VITALS: BP 158/82
[2025-05-21 19:39] VITALS: BP 172/86
[2025-05-21 22:36] VITALS: BP 149/80
[2025-05-22 02:49] VITALS: BP 141/88
[2025-05-22 05:15] LABS: Anion Gap 9.0 mmol/L (3-11); Blood Urea Nitrogen 13.0 mg/dL (8-24); CO2, Blood 28.0 mmol/L (21-32); Calcium, Blood 8.6 mg/dL (8.5-10.1); Chloride, Blood 108.0 mmol/L (98-108); Creatinine, Blood 1.06 mg/dL (0.40-1.00); Glucose, Blood 149.0 mg/dL (70-99); Potassium, Blood 3.7 mmol/L (3.5-5.5); Sodium, Blood 141.0 mmol/L (136-145)
--- NOTE | 2025-05-22 06:10 | NUR ---
SHIFT SUMMARY; PATIENT WAS ABLE TO SLEEP IN LONG INTERVALS. UP TO BR WITH HEAVY 1 ASSIST WITH GB, AND FWW. WOBBLEY WHEN SHE STANDS. BP 172/86 AT 2100 BUT CAME DOWN TO 149/80 WITH ONLY COZAAR.
[2025-05-22 08:42] VITALS: BP 161/85
[2025-05-22] MEDS ORDERED: Amlodipine Besyl5 MG PO (13:24)
[2025-05-22 15:31] VITALS: BP 157/95
[2025-05-23] MEDS ORDERED: AMLODIPINE BESYL5 MG PO (20:18)
[2025-05-23] MEDS ORDERED: FIASP 100100 UNIT/3 INJ (20:19)
[2025-05-23] MEDS ORDERED: ATOR10 PO (20:20)
== END 2025-05-22 16:15 | disposition home health service (06) ==
LOC: ER 09:25 → MEDS 09:26 → ERHOLD 09:26 → MEDS 21:31
PROVIDERS: Emergency Medicine; Internal Medicine; ADMIT Internal Medicine
DX: R55 Syncope and collapse (principal); H81.09 Meniere's disease, unspecified ear; N17.9 Acute kidney failure, unspecified; R26.89 Other abnormalities of gait and mobility; E11.9 Type 2 diabetes mellitus without complications; I10 Essential (primary) hypertension; M79.7 Fibromyalgia; G43.909 Migraine, unspecified, not intractable, without status migrainosus; R09.81 Nasal congestion; E87.6 Hypokalemia; Z91.040 Latex allergy status; Z88.6 Allergy status to analgesic agent; Z88.0 Allergy status to penicillin; Z79.84 Long term (current) use of oral hypoglycemic drugs; Z79.4 Long term (current) use of insulin; Z79.82 Long term (current) use of aspirin; Z79.899 Other long term (current) drug therapy; Z90.49 Acquired absence of other specified parts of digestive tract
CPT/HCPCS: 36415; 70450; 71046; 73502; 80048; 80053; 80069; 81003; 82947; 83036; 84484; 85025; 85027; 93005; 93010; 94760; 96360; 96361; 96372; 96374; 96376; 97110; 97112; 97116; 97162; 97530; 99285-25; A9270; G0378; J0360; J1650; J1815; J3480; J7030; J7120

== ENCOUNTER 2025-05-23 17:27 | Emergency (ER) | payer OTHER ==
[~2025-05-23] VITALS: Ht 170.2 cm; Wt 88.9 kg
[~2025-05-23 17:27] MED LIST changes: +ACET500 PO; +Amlodipine Besyl5 MG PO; +Calcium Carbon500 MG PO; +Colace100 MG PO; +Diprolene 0.05%15 GM TOP; +EYE ALLERGY ITCH5 ML BOTHEYES; +FREESTYLE LIBR1 EA10 MC; +FURO20 PO; +KETO15TC TOP; +NEBI10 PO; +NIZORAL A-D125 ML; +TRESIBA FL100 UNIT/2 SC; +TRULICITY3 MG/0.5 M SC; +VITAMIN D5000 UNIT PO; +[UNRECOGNIZED DRUG - OTHER] TOP
[2025-05-23 18:29] LABS: BASOPHILS ABSOLUTE AUTO 0.06 K/mm3 (0.00-0.23); BASOPHILS PERCENT AUTO 1 % (0-2); EOSINOPHILS ABSOLUTE AUTO 0.22 K/mm3 (0.00-0.68); EOSINOPHILS PERCENT AUTO 3 % (0-6); Hematocrit 35.2 % (33.0-51.0); Hemoglobin 11.6 g/dL (11.5-16.0); IMMATURE GRAN ABSOLUTE AUTO 0.02 K/mm3 (0.00-0.10); IMMATURE GRAN PERCENT AUTO 0 % (0-1); LYMPHOCYTES ABSOLUTE AUTO 2.15 K/mm3 (0.84-5.20); LYMPHOCYTES PERCENT AUTO 24 % (21-46); MONOCYTES ABSOLUTE AUTO 0.66 K/mm3 (0.16-1.47); MONOCYTES PERCENT AUTO 8 % (4-13); Mean Corpuscular HGB Conc 33.0 g/dL (31.5-36.5); Mean Corpuscular Volume 91 fL (80-100); NEUTROPHILS ABSOLUTE AUTO 5.70 K/mm3 (1.96-9.15); NEUTROPHILS PERCENT AUTO 65 % (41-73); NRBC ABSOLUTE 0.00 K/mm3 (0.00-0.02); NRBC Auto 0.0 /100 WBC (0.0-0.2); Platelet Count 302 K/mm3 (150-400); RDW Coefficient Variation 14.7 % (11.7-14.2); RDW Standard Deviation 49.0 fL (35.1-46.3)
[2025-05-23 18:49] LABS: Alanine Aminotransfer (ALT/SGP 33.0 U/L (12-78); Albumin, Blood 3.2 g/dL (3.4-5.0); Albumin/Globulin Ratio 0.8 (0.8-1.8); Anion Gap 9.0 mmol/L (3-11); Aspartate Aminotrans (AST/SGOT 33.0 U/L (12-37); Bilirubin, Total 0.3 mg/dL (0.1-1.0); Blood Urea Nitrogen 17.0 mg/dL (8-24); CO2, Blood 24.0 mmol/L (21-32); Calcium, Blood 8.8 mg/dL (8.5-10.1); Chloride, Blood 107.0 mmol/L (98-108); Creatinine, Blood 1.09 mg/dL (0.40-1.00); Globulin, Blood 3.9 g/dL (2.2-4.0); Glucose, Blood 259.0 mg/dL (70-99); Potassium, Blood 4.0 mmol/L (3.5-5.5); Sodium, Blood 136.0 mmol/L (136-145); Total Protein, Blood 7.1 g/dL (6.4-8.2)
[2025-05-23] MEDS ORDERED: AMLODIPINE BESYL5 MG PO (20:18)
[2025-05-23] MEDS ORDERED: FIASP 100100 UNIT/3 INJ (20:19)
[2025-05-23] MEDS ORDERED: ATOR10 PO (20:20)
[2025-05-24 23:30] VITALS: BP 168/94
== END 2025-05-24 11:36 ==
LOC: ER 17:27
PROVIDERS: Student in an Organized Health Care Education/Training Program
DX: R53.1 Weakness (principal); R29.6 Repeated falls; I10 Essential (primary) hypertension; Z88.0 Allergy status to penicillin; Z88.8 Allergy status to other drugs, medicaments and biological substances; Z91.040 Latex allergy status; Z79.4 Long term (current) use of insulin; Z79.82 Long term (current) use of aspirin; Z79.899 Other long term (current) drug therapy
CPT/HCPCS: 80053; 82947; 85025; 93005; 93010; 97112; 97162; 97530; 99285-25; A9270

== ENCOUNTER 2025-07-07 16:41 | Emergency (ER) | payer OTHER ==
[~2025-07-07] VITALS: Ht 170.2 cm; Wt 90.7 kg
[~2025-07-07 16:41] MED LIST changes: +AMLODIPINE BESYL5 MG PO; +FIASP 100100 UNIT/3 INJ
[2025-07-07 17:40] LABS: BASOPHILS ABSOLUTE AUTO 0.10 K/mm3 (0.00-0.23); BASOPHILS PERCENT AUTO 1 % (0-2); EOSINOPHILS ABSOLUTE AUTO 0.19 K/mm3 (0.00-0.68); EOSINOPHILS PERCENT AUTO 2 % (0-6); Hematocrit 36.8 % (33.0-51.0); Hemoglobin 12.3 g/dL (11.5-16.0); IMMATURE GRAN ABSOLUTE AUTO 0.02 K/mm3 (0.00-0.10); IMMATURE GRAN PERCENT AUTO 0 % (0-1); LYMPHOCYTES ABSOLUTE AUTO 2.15 K/mm3 (0.84-5.20); LYMPHOCYTES PERCENT AUTO 26 % (21-46); MONOCYTES ABSOLUTE AUTO 0.65 K/mm3 (0.16-1.47); MONOCYTES PERCENT AUTO 8 % (4-13); Mean Corpuscular HGB Conc 33.4 g/dL (31.5-36.5); Mean Corpuscular Volume 90 fL (80-100); NEUTROPHILS ABSOLUTE AUTO 5.17 K/mm3 (1.96-9.15); NEUTROPHILS PERCENT AUTO 62 % (41-73); NRBC ABSOLUTE 0.00 K/mm3 (0.00-0.02); NRBC Auto 0.0 /100 WBC (0.0-0.2); Platelet Count 307 K/mm3 (150-400); RDW Coefficient Variation 13.8 % (11.7-14.2); RDW Standard Deviation 44.7 fL (35.1-46.3)
[2025-07-07] MEDS ORDERED: D5W NS IV ONE (17:50)
[2025-07-07 20:55] LABS: Source, Urine Clean Catch
[2025-07-07 20:58] LABS: Bilirubin, Urine Neg (Neg); Color, Urine Yellow (P-Yellow); Glucose Qualitative, Urine Neg (Neg); Ketones, Urine Neg (Neg); Leukocyte Esterase, Urine Neg (Neg); Protein, Urine 1+ (Neg); Specific Gravity, Urine 1.010 (1.003-1.022); Urobilinogen, Urine NORM (Normal)
[2025-07-07 21:12] LABS: Red Blood Cells, Urine 0-2 /hpf (0-2)
[2025-07-07 21:20] LABS: Alanine Aminotransfer (ALT/SGP 30.0 U/L (12-78); Albumin, Blood 3.6 g/dL (3.4-5.0); Albumin/Globulin Ratio 0.9 (0.8-1.8); Anion Gap 8.0 mmol/L (3-11); Aspartate Aminotrans (AST/SGOT 17.0 U/L (12-37); Bilirubin, Total 0.4 mg/dL (0.1-1.0); Blood Urea Nitrogen 14.0 mg/dL (8-24); CO2, Blood 27.0 mmol/L (21-32); Calcium, Blood 9.2 mg/dL (8.5-10.1); Chloride, Blood 108.0 mmol/L (98-108); Creatinine, Blood 0.89 mg/dL (0.40-1.00); Globulin, Blood 4.2 g/dL (2.2-4.0); Glucose, Blood 126.0 mg/dL (70-99); Magnesium, Blood 2.1 mg/dL (1.6-2.4); Potassium, Blood 3.8 mmol/L (3.5-5.5); Sodium, Blood 139.0 mmol/L (136-145); Total Protein, Blood 7.8 g/dL (6.4-8.2)
[2025-07-07 22:07] LABS: Influenza A, PCR NEGATIVE (NEGATIVE); Influenza B, PCR NEGATIVE (NEGATIVE); Resp Syncytial Virus, PCR NEGATIVE (NEGATIVE); SARS-Cov-2 (COVID-19) PCR, MMC NEGATIVE (NEGATIVE)
[2025-07-07 22:58] VITALS: BP 162/86
== END 2025-07-07 22:58 | disposition home or self-care (01) ==
LOC: ER 16:41
PROVIDERS: Student in an Organized Health Care Education/Training Program
DX: R53.1 Weakness (principal); I10 Essential (primary) hypertension; E11.9 Type 2 diabetes mellitus without complications; Z88.0 Allergy status to penicillin; Z88.8 Allergy status to other drugs, medicaments and biological substances; Z91.040 Latex allergy status; Z79.4 Long term (current) use of insulin; Z79.82 Long term (current) use of aspirin; Z79.899 Other long term (current) drug therapy
CPT/HCPCS: 36415; 71045; 80053; 81001; 82947; 83735; 85025; 87086; 87637; 93005; 93010; 99285-25; J7042